=== PATIENT | male | born 1930 | race Caucasian/White ===

== ENCOUNTER → 2016-06-24 | Outpatient (REF) | payer MEDICARE ==
[2016-06-24 17:05] LABS: ANION GAP 13.4 MEQ/L (3-15)
== END ==
LOC: LAB 15:11
PROVIDERS: ATTEND Internal Medicine
DX: C61 Malignant neoplasm of prostate (principal); J18.9 Pneumonia, unspecified organism; R63.4 Abnormal weight loss; I48.91 Unspecified atrial fibrillation; E87.1 Hypo-osmolality and hyponatremia; I10 Essential (primary) hypertension; R53.1 Weakness
CPT/HCPCS: 80048

== ENCOUNTER → 2016-09-29 | Outpatient (REF) | payer MEDICARE ==
[~2016-09-29] MED LIST: AMOX500C5 PO; ATN50T PO; CALC-140 PO; CYAN500T2 PO; DOCU100C8 PO; ENAL10TA PO; FNST5T PO; GUAI100L13 PO; MAALIDOBEN PO; MAGN400O7 PO; MULT-351 PO; NYST1000 PO; ONDA8TAB6 PO; PRD5T PO; PSYL1PAC10 PO; RANI-419 PO; SPIR1TAB3 PO; TURM500C8 PO; UBID100C8 PO; WRF5T PO
[2016-09-29 16:27] LABS: ANION GAP 16.4 MEQ/L (3-15)
== END ==
LOC: LAB 15:49
PROVIDERS: ATTEND Internal Medicine
DX: Z51.81 Encounter for therapeutic drug level monitoring (principal); Z79.899 Other long term (current) drug therapy
CPT/HCPCS: 80048

== ENCOUNTER → 2016-10-21 | Outpatient (REF) | payer MEDICARE ==
[2016-10-21 16:34] LABS: BILIRUBIN,URINE Negative (Negative); CLARITY,URINE Clear; COLOR,URINE Yellow; GLUCOSE, URINE (UA) Negative (Negative); LEUKOCYTE ESTERASE ,URINE Negative (Negative); PH,URINE 5.5 (5.0 - 8.0); UROBILINOGEN,URINE 0.2 mg/dL (0.2-1.0)
[2016-10-21 16:35] LABS: URINE CENTRIFUGED VOLUME 12 mL
== END ==
LOC: LAB 15:00
PROVIDERS: ATTEND Internal Medicine
DX: N39.0 Urinary tract infection, site not specified (principal)
CPT/HCPCS: 81003; 81015

== ENCOUNTER → 2016-10-22 | Outpatient (CLI) | payer MEDICARE ==
[2016-10-22 10:50] LABS: MEAN PLATELET VOLUME 10.7 FL (6.0-9.5); WHITE BLOOD COUNT 9.17 10^3uL (4.0-11.0)
[2016-10-22 11:03] LABS: ANION GAP 14.5 MEQ/L (3-15)
--- NOTE | 2016-10-22 11:04 | Diagnostic Imaging Report ---
INDICATION: Increased weakness, cough, history of prostate cancer. Symptoms for last 2-3 days. EXAMINATION: Two-view chest on 10/22/2016. COMPARISON: 05/13/2016. FINDINGS: The heart is enlarged. There is a right pleural effusion with underlying atelectasis or infiltrate. There is a prominent density in the right perihilar region and similar findings on the left although to a lesser degree. No pneumothorax is seen. There is a compression deformity in the upper lumbar region which is age indeterminate but was not seen on a previous MRI of the lumbar spine dated 08/06/2015. IMPRESSION: 1. Bibasilar infiltrates and effusions, right worse than left. 2. Increased densities, rounded in appearance, in the gigi, right worse than left, suspicious for lymphadenopathy. Underlying lung lesions are not excluded given the history of previous carcinoma. CT imaging may be warranted. This could also further evaluate the vague oval density in the left midlung not mentioned above and not seen on the previous plain films. 3. Age indeterminate lumbar spine compression deformity. MRI could evaluate for acuity as clinically warranted. Dictated by: Dictated on workstation # [id number]
[2016-10-22 11:29] LABS: MEAN CORPUSCULAR HEMOGLOBIN 26.8 PG (26.0-34.0); MEAN CORPUSCULAR HGB CONC 35.7 g/dL (31.0-37.0)
== END ==
LOC: RAD 10:13
PROVIDERS: ATTEND Internal Medicine
DX: C61 Malignant neoplasm of prostate (principal); R53.1 Weakness; R60.9 Edema, unspecified; I10 Essential (primary) hypertension; J18.9 Pneumonia, unspecified organism; R63.4 Abnormal weight loss; I48.91 Unspecified atrial fibrillation; E87.1 Hypo-osmolality and hyponatremia
CPT/HCPCS: 36415; 71020; 80048; 85027; 86140

== ENCOUNTER → 2016-10-23 | Outpatient (CLI) | payer MEDICARE | LOC: EMS 05:31 | PROVIDERS: ATTEND Emergency Medicine | DX: Z53.20 Procedure and treatment not carried out because of patient's decision for unspecified reasons (principal) ==

== ENCOUNTER → 2016-10-25 | Outpatient (REF) | payer MEDICARE ==
[2016-10-25 11:53] LABS: ANION GAP 10.8 MEQ/L (3-15)
== END ==
LOC: LAB 10-24 11:46
PROVIDERS: ATTEND Internal Medicine
DX: C61 Malignant neoplasm of prostate (principal); J18.9 Pneumonia, unspecified organism; R63.4 Abnormal weight loss; I48.91 Unspecified atrial fibrillation; E87.1 Hypo-osmolality and hyponatremia; I10 Essential (primary) hypertension; R53.1 Weakness
CPT/HCPCS: 80048